=== PATIENT | female | born 1980 | race Caucasian/White ===

== ENCOUNTER 2019-09-05 03:56 | Emergency (ER) | payer OTHER ==
[~2019-09-05] VITALS: Ht 167.6 cm; Wt 57.0 kg
[2019-09-05] MEDS ORDERED: GENTAMICIN0.3 % OS (04:24)
[2019-09-05] MEDS ORDERED: PERCOCET 5/321 COMBO PO (04:24)
[2019-09-05 04:28] VITALS: BP 125/82
== END 2019-09-05 04:35 | disposition home or self-care (01) | DRG 125 ==
LOC: ED 03:56
DX: S05.02XA Injury of conjunctiva and corneal abrasion without foreign body, left eye, initial encounter (principal); X58.XXXA Exposure to other specified factors, initial encounter

== ENCOUNTER 2021-07-15 02:44 | Emergency (ER) | payer SELFPAY ==
[~2021-07-15] VITALS: Ht 167.6 cm; Wt 59.0 kg
[2021-07-15] VITALS (9 sets, daily range): BP systolic 89–128; BP diastolic 60–93
[~2021-07-15 02:44] MED LIST: GENTAMICIN0.3 % OS; PERCOCET 5/321 COMBO PO
[2021-07-15 03:09] LABS: HEMATOCRIT 46.6 % (37.0-47.0); HEMOGLOBIN 14.9 g/dl (12.0-16.0); IMMATURE GRANULOCYTES 0.2 % (0.0-5.0); MEAN CELL VOLUME 94.7 fL CALC (80.0-100.0); MEAN CORPUSCULAR HGB 30.3 pG CALC (26.0-32.0); NEUT# 4.67 thou/uL (2.00-7.15); RED BLOOD COUNT 4.92 mill/uL (4.20-5.60); RED CELL DISTRI WIDTH 12.7 % (11.5-15.5)
[2021-07-15 03:24] LABS: ALKALINE PHOSPHATASE 68 u/l (38-126); ANION GAP 19 (6-22 (CALC)); BILIRUBIN, TOTAL 0.2 mg/dL (0.0-1.4); BUN 14 mg/dL (7-17); BUN/CREATININE RATIO 17 (12-20 (CALC)); CARBON DIOXIDE 23 mmol/l (22-30); CHLORIDE 109 mmol/l (95-108); CREATININE 0.8 mg/dL (0.5-1.0); ETHYL ALCOHOL 225 mg/dl (0-30); GFR FOR AFR.AMER. > 60 ML/MIN (>=60 (CALC)); GFR OTHER RACES > 60 ML/MIN (>=60 (CALC)); MAGNESIUM 2.2 mg/dL (1.6-2.3); POTASSIUM 4.3 mmol/l (3.5-5.1); SGOT/AST 23 u/l (14-36); SODIUM 147 mmol/l (137-146); TOTAL PROTEIN 8.2 g/dL (6.3-8.2)
[2021-07-15 03:35] LABS: URINE BILIRUBIN - DIPSTICK NEGATIVE (NEGATIVE); URINE BLOOD DIPSTICK TRACE-INTACT (NEGATIVE); URINE COLOR YELLOW; URINE GLUCOSE - DIPSTICK NEGATIVE (NEGATIVE); URINE KETONE NEGATIVE (NEGATIVE); URINE LEUK ESTERASE NEGATIVE (NEGATIVE); URINE PH 5.5 (4.5-8.0); URINE PROTEIN - DIPSTICK NEGATIVE (NEG-TRACE); URINE SPECIFIC GRAVITY <=1.005; URINE UROBILINOGEN - DIPSTICK 0.2 E.U./dL (0.2)
[2021-07-15 03:36] LABS: URINE NITRITE - DIPSTICK NEGATIVE (Negative)
== END 2021-07-15 10:57 | disposition designated cancer center or children's hospital (05) | DRG 880 ==
LOC: ED 02:44
PROVIDERS: Family Medicine
DX: R45.851 Suicidal ideations (principal); F10.129 Alcohol abuse with intoxication, unspecified; F41.9 Anxiety disorder, unspecified; Z20.822 Contact with and (suspected) exposure to COVID-19